=== PATIENT | female | born 1985 | race Caucasian/White ===

== ENCOUNTER 2016-12-05 21:40 | Emergency (ER) | payer OTHER ==
[2016-12-06 00:15] VITALS: BP 111/72
== END 2016-12-06 00:15 | disposition home or self-care (01) ==
LOC: ED 21:40
DX: M75.91 Shoulder lesion, unspecified, right shoulder (principal); L50.9 Urticaria, unspecified

== ENCOUNTER 2017-03-14 11:10 | Emergency (ER) | payer OTHER ==
[~2017-03-14] VITALS: Ht 162.6 cm; Wt 120.7 kg
[2017-03-14 12:00] VITALS: Ht 162.6 cm; Wt 120.7 kg
[2017-03-14 14:24] VITALS: BP 132/74
== END 2017-03-14 14:24 | disposition home or self-care (01) ==
LOC: ED 11:10
DX: H66.91 Otitis media, unspecified, right ear (principal); R05 Cough

== ENCOUNTER 2018-04-26 00:22 | Emergency (ER) | payer OTHER ==
[~2018-04-26] VITALS: Ht 165.1 cm; Wt 120.2 kg
[2018-04-26 00:30] VITALS: BP 142/94; Ht 165.1 cm; Wt 120.2 kg
== END 2018-04-26 01:44 | disposition home or self-care (01) ==
LOC: ED 00:22
DX: H66.93 Otitis media, unspecified, bilateral (principal); J06.9 Acute upper respiratory infection, unspecified; R09.89 Other specified symptoms and signs involving the circulatory and respiratory systems
CPT/HCPCS: J1885